=== PATIENT | male | born 1930 | race Caucasian/White ===

== ENCOUNTER 2017-08-17 09:18 | Emergency (ER) | payer MEDICARE, BC ==
[2017-08-17 09:47] VITALS: BP 126/65
--- NOTE | 2017-08-17 11:35 | UC ---
General HPI - HPI Summary HPI Summary: 86 year old male with groin pain. He went to bend over yesterday after getting out of his car in an awkward position and felt a burning sensation that radiated in to the inside of his thigh. no bowel or bladder concerns. no obvious bulge in the groin. no weakness in the foot or leg or any foot drop . feels the discomfort in the left. pain 4/10 today was 7/10 last night - History of Current Complaint Chief Complaint: UCLowerExtremity Stated Complaint: GROIN PAIN Time Seen by Provider: 08/17/17 10:27 Onset/Duration: Sudden Onset Pain Intensity: 0 - Allergy/Home Medications Allergies/Adverse Reactions: Allergies Allergy/AdvReac Type Severity Reaction Status Date / Time No Known Allergies Allergy Verified 08/17/17 09:29 Home Medications: Home Medications Acetaminophen TAB* [Tylenol TAB*] 650 mg PO Q4H PRN 08/17/17 [History Confirmed 08/17/17] PMH/Surg Hx/FS Hx/Imm Hx Previously Healthy: Yes - Surgical History Surgical History: Yes Surgery Procedure, Year, and Place: 1934 SYMPATHECTOMY ([facility]), [place]. 1950 APPENDECTOMY, [employer]. [id number] [facility]AL [facility] [place]. LEFT CTR 08/24 [facility] - Social History Alcohol Use: Rare Substance Use Type: None Smoking Status (MU): Former Smoker Type: Cigarettes Amount Used/How Often: 1 PPD OR LESS Length of Time of Smoking/Using Tobacco: 40 YEARS Have You Smoked in the Last Year: No When Did the Patient Quit Smoking/Using Tobacco: AGE 64 - Immunization History Most Recent Influenza Vaccination: 2014 Most Recent Tetanus Shot: unknown Most Recent Pneumonia Vaccination: 2012 Review of Systems Musculoskeletal: Other: - left groin pain Is Patient Immunocompromised?: No All Other Systems Reviewed And Are Negative: Yes Physical Exam Triage Information Reviewed: Yes Appearance: Well-Appearing, No Pain Distress, Well-Nourished Vital Signs: Initial Vital Signs Temp 98.1 F 08/17/17 09:33 Pulse 86 08/17/17 09:33 Resp 18 08/17/17 09:33 BP 126/65 08/17/17 09:33 Pulse Ox 97 08/17/17 09:33 Vital Signs Reviewed: Yes Eye Exam: Normal ENT Exam: Normal Respiratory Exam: Normal Cardiovascular Exam: Normal Abdominal Exam: Normal Abdomen Description: Positive: Nontender, No Organomegaly, Soft, Other: - left inner groin tenderness to palpation in the area of the gracilis. no obvious hernia or bulge. pain and tenderness went from groin in to the left thigh medially about 6 cm. no skin changes no ecchymosis. no scrotal concerns or abscess. Negative: CVA Tenderness (R), CVA Tenderness (L), Distended, Guarding , Hernia @ Neurological Exam: Normal Psychological Exam: Normal Skin Exam: Normal Course/Dx - Course Course Of Treatment: likely groin strain from bending over and putting pressure on the gracilis. no hernia noted on exam . discussed plans and will try APAP with ice and flexeril if discofort at night, if bulge develops or pain persists then go to general surgery . pt agreeable to plan - Differential Dx - Multi-Symptom Provider Diagnoses: Left sided groin pain / strain / sports hernia Discharge - Discharge Plan Condition: Good Disposition: HOME Prescriptions: Cyclobenzaprine (NF) [Cyclobenzaprine 5 MG (NF)] 5 mg PO TID #5 tab Patient Education Materials: Groin Pain (ED) Referrals: Nigel Euceda MD [Primary Care Provider] - 3 Days Cruz Chu MD [Medical Doctor] - If Needed (GENERAL SURGERY REFERRAL IF PAIN PERSISTS OR WORSENS OR DEVELOP HERNIA )
== END 2017-08-17 11:12 | disposition home or self-care (01) ==
LOC: UCCORT 09:18
DX: R10.30 Lower abdominal pain, unspecified (principal); K46.9 Unspecified abdominal hernia without obstruction or gangrene; T14.8XXA Other injury of unspecified body region, initial encounter; X50.9XXA Other and unspecified overexertion or strenuous movements or postures, initial encounter; Y92.9 Unspecified place or not applicable; Z87.891 Personal history of nicotine dependence
CPT/HCPCS: 99212; G0463

== ENCOUNTER 2017-09-01 15:26 | Emergency (ER) | payer MEDICARE, BC ==
[2017-09-01 16:04] VITALS: BP 143/74
--- NOTE | 2017-09-01 16:49 | UC ---
UC General HPI - HPI Summary HPI Summary: Patient has recent left groin strain, now has right knee pain and right lebow bursititis, he is not sure how it happened, states he leans on the arm alot. - History of Current Complaint Chief Complaint: UCUpperExtremity Stated Complaint: RIGHT ELBOW,RIGHT KNEE,BACK PAIN Time Seen by Provider: 09/01/17 16:24 Hx Obtained From: Patient Onset/Duration: Sudden Onset, Lasting Days Timing: Constant Onset Severity: Moderate Current Severity: Moderate - Allergy/Home Medications Allergies/Adverse Reactions: Allergies Allergy/AdvReac Type Severity Reaction Status Date / Time No Known Allergies Allergy Verified 09/01/17 16:04 PMH/Surg Hx/FS Hx/Imm Hx Previously Healthy: Yes - Surgical History Surgical History: Yes Surgery Procedure, Year, and Place: 1934 SYMPATHECTOMY ([facility]), [place]. 1950 APPENDECTOMY, [employer]. [phone] [facility]AL [facility]. LEFT CTR 08/24 [facility] - Family History Known Family History: Positive: Hypertension - Social History Alcohol Use: Rare Substance Use Type: None Smoking Status (MU): Never Smoked Tobacco Type: Cigarettes Amount Used/How Often: 1 PPD OR LESS Length of Time of Smoking/Using Tobacco: 40 YEARS Have You Smoked in the Last Year: No When Did the Patient Quit Smoking/Using Tobacco: 1994 - Immunization History Most Recent Influenza Vaccination: 2014 Most Recent Tetanus Shot: unknown Most Recent Pneumonia Vaccination: 2012 Review of Systems Skin: Negative Eyes: Negative ENT: Negative Respiratory: Negative Cardiovascular: Negative Gastrointestinal: Negative Genitourinary: Negative Motor: Negative Neurovascular: Negative Musculoskeletal: Arthralgia, Edema - in right elbow, Myalgia Neurological: Negative Psychological: Negative Is Patient Immunocompromised?: No All Other Systems Reviewed And Are Negative: Yes Physical Exam Triage Information Reviewed: Yes Appearance: Well-Appearing, Well-Nourished, Pain Distress Vital Signs: Initial Vital Signs Temp 99.2 F 09/01/17 15:52 Pulse 70 09/01/17 15:52 Resp 17 09/01/17 15:52 BP 143/74 09/01/17 15:52 Pulse Ox 97 09/01/17 15:52 Eye Exam: Normal Eyes: Positive: Conjunctiva Clear ENT Exam: Normal ENT: Positive: Pharynx normal, TMs normal Dental Exam: Normal Neck exam: Normal Respiratory Exam: Normal Respiratory: Positive: Chest non-tender, Lungs clear, Normal breath sounds Cardiovascular Exam: Normal Cardiovascular: Positive: RRR, No Murmur, Pulses Normal Abdominal Exam: Normal Abdomen Description: Positive: Nontender, No Organomegaly, Soft Musculoskeletal: Positive: Strength Intact, ROM Limited @ - in lumbar spine ext , Edema @ - in right elbow, Other: - knee ROM full, pain along the medial joint line Neurological Exam: Normal Psychological Exam: Normal Skin Exam: Normal Course/Dx - Course Course Of Treatment: hx obtained, exam performed ,meds reviewed, treated for bursitis, - Differential Dx - Multi-Symptom Provider Diagnoses: right suprapatellar joint effusion. OA. RIght elbow bursitis. healing left groain strain Discharge - Discharge Plan Condition: Stable Disposition: HOME Patient Education Materials: Elbow Bursitis (ED), Swollen Knee Joint (ED) Additional Instructions: 1. COntinue with the slava wrap for swelling 2. You can take 1000 mg of tylenol every 8 hours for pain. 3. rest, ice the knee, Elevate at rest 4. I would like you to follow with Dr Ramírez tomorrow for the swelling in your knee.
--- NOTE | 2017-09-01 17:10 | RAD ---
Indication: Lateral RIGHT knee pain for 3 days. Comparison: None. Technique: RIGHT knee: AP, tunnel, lateral, sunrise views. Report: Mild osteophytosis. Moderately severe medial joint space narrowing with associated partial flattening of the articular surfaces and subchondral sclerosis. Similar joint space narrowing at the patellofemoral joint. Small suprapatellar joint effusion. Negative for fracture or malalignment. Peripheral vascular calcifications. Unremarkable soft tissue contours. IMPRESSION: Kellgren and Chinedu grade 3 osteoarthritis. Associated small joint effusion. No fracture evident.
== END 2017-09-01 17:34 | disposition home or self-care (01) ==
LOC: UCCORT 15:26
DX: M25.461 Effusion, right knee (principal); Z87.891 Personal history of nicotine dependence; M19.90 Unspecified osteoarthritis, unspecified site; M70.31 Other bursitis of elbow, right elbow; S39.011A Strain of muscle, fascia and tendon of abdomen, initial encounter; X58.XXXA Exposure to other specified factors, initial encounter; Y92.9 Unspecified place or not applicable
CPT/HCPCS: 99212; G0463

== ENCOUNTER 2017-09-23 16:01 | Emergency (ER) | payer MEDICARE, BC ==
[2017-09-23 17:09] VITALS: BP 148/71
--- NOTE | 2017-09-23 17:38 | UC ---
Respiratory Complaint HPI - HPI Summary HPI Summary: 86 YEAR OLD MALE PRESENTS WITH COMPLAINS OF COUGHING AND SHORTNESS OF BREATH. - History of Current Complaint Chief Complaint: UCGeneralIllness Stated Complaint: RESPIRATORY Time Seen by Provider: 09/23/17 17:36 Hx Obtained From: Patient Onset/Duration: Sudden Onset Severity Initially: Moderate Severity Currently: Moderate Pain Scale Used: 0-10 Numeric - 5 - Allergies/Home Medications Allergies/Adverse Reactions: Allergies Allergy/AdvReac Type Severity Reaction Status Date / Time No Known Allergies Allergy Verified 09/23/17 17:09 Home Medications: Home Medications Cyclobenzaprine (NF) [Cyclobenzaprine 5 MG (NF)] 5 mg PO TID PRN 09/23/17 [ History Confirmed 09/23/17] [id number] [Nyquil Severe Cold/Flu 5-6.25-10-325 mg/15Ml] 30 ml PO BEDTIME PRN 09/23/17 [History Confirmed 09/23/17] PMH/Surg Hx/FS Hx/Imm Hx Previously Healthy: Yes - Surgical History Surgical History: Yes Surgery Procedure, Year, and Place: 1934 SYMPATHECTOMY ([facility]), [place]. 1950 APPENDECTOMY, [employer]. [phone] B[facility]AL [facility] [place]. LEFT CTR 08/24 [facility] - Family History Known Family History: Positive: Hypertension - Social History Alcohol Use: Rare Substance Use Type: None Smoking Status (MU): Former Smoker Type: Cigarettes Amount Used/How Often: 1 PPD OR LESS Length of Time of Smoking/Using Tobacco: 40 YEARS Have You Smoked in the Last Year: No When Did the Patient Quit Smoking/Using Tobacco: 1994 - Immunization History Most Recent Influenza Vaccination: 2014 Most Recent Tetanus Shot: unknown Most Recent Pneumonia Vaccination: 2012 Review of Systems Constitutional: Negative Skin: Negative Eyes: Negative ENT: Sore Throat, Nasal Discharge, Sinus Congestion, Sinus Pain/Tenderness Respiratory: Cough Cardiovascular: Negative Gastrointestinal: Negative Genitourinary: Negative Motor: Negative Neurovascular: Negative Musculoskeletal: Negative Neurological: Negative Psychological: Negative All Other Systems Reviewed And Are Negative: Yes Physical Exam Triage Information Reviewed: Yes Vital Signs: Initial Vital Signs Temp 36.8 C 09/23/17 17:02 Pulse 74 09/23/17 17:02 Resp 20 09/23/17 17:02 BP 148/71 09/23/17 17:02 Pulse Ox 98 09/23/17 17:02 Vital Signs Reviewed: Yes Eye Exam: Normal ENT Exam: Normal ENT: Positive: Nasal congestion, Nasal drainage Dental Exam: Normal Neck exam: Normal Neck: Positive: 1 Respiratory Exam: Normal Respiratory: Positive: Wheezing Cardiovascular Exam: Normal Abdominal Exam: Normal Musculoskeletal Exam: Normal Neurological Exam: Normal Psychological Exam: Normal Skin Exam: Normal UC Diagnostic Evaluation - Laboratory O2 Sat by Pulse Oximetry: 98 Respiratory Course/Dx - Differential Dx/Diagnosis Provider Diagnoses: BRONCHITIS. SINUSITIS Discharge - Discharge Plan Condition: Stable Disposition: HOME Prescriptions: Azithromyxin GUNNER (NF) [Z-Gunner (Zithromax) 250 mg tabs #6] 2 tab PO .TODAY, THEN 1 DAILY #6 tab Patient Education Materials: Sinusitis (ED) Referrals: Nigel Euceda MD [Primary Care Provider] -
== END 2017-09-23 17:55 | disposition home or self-care (01) ==
LOC: UCCORT 16:01
DX: J40 Bronchitis, not specified as acute or chronic (principal); J32.9 Chronic sinusitis, unspecified; Z90.89 Acquired absence of other organs; Z87.891 Personal history of nicotine dependence
CPT/HCPCS: 99212; G0463

== ENCOUNTER 2018-03-16 10:22 | Emergency (ER) | payer MEDICARE, BC ==
[2018-03-16 11:30] VITALS: BP 139/67
--- NOTE | 2018-03-16 12:38 | UC ---
Respiratory Complaint HPI - HPI Summary HPI Summary: C/O 2 day h/o congestion, sore throat, sinus pain. Minimal cough with no SOB/ or wheezing. - History of Current Complaint Chief Complaint: UCRespiratory Stated Complaint: RESPIRATORY/ST Time Seen by Provider: 03/16/18 12:30 Hx Obtained From: Patient Onset/Duration: Sudden Onset, Lasting Days - 2, Worse Since - onset Timing: Constant Severity Initially: Mild Severity Currently: Moderate Pain Intensity: 0 Character: Cough: Nonproductive Aggravating Factors: Nothing Alleviating Factors: Nothing Associated Signs And Symptoms: Positive: URI, Nasal Congestion, Hoarseness, Sinus Discomfort. Negative: Dyspnea, Fever, Chills, Wheezing - Allergies/Home Medications Allergies/Adverse Reactions: Allergies Allergy/AdvReac Type Severity Reaction Status Date / Time No Known Allergies Allergy Verified 03/16/18 11:31 Home Medications: Home Medications Calcium Carbonate [Calcium] 500 mg PO BID 03/16/18 [History Confirmed 03/16/18] Hydrochlorothiazide TAB* [Hydrodiuril TAB*] 25 mg PO DAILY 03/16/18 [History Confirmed 03/16/18] Testosterone Injection 1 dose INJ SEE INSTRUCTIONS 03/16/18 [History Confirmed 03/16/18] PMH/Surg Hx/FS Hx/Imm Hx Cardiovascular History: Hypertension - Surgical History Surgical History: Yes Surgery Procedure, Year, and Place: 1934 SYMPATHECTOMY ([facility]), [place]. 1950 APPENDECTOMY, [employer]. [phone] [facility]. LEFT CTR 08/24 [facility] - Family History Known Family History: Positive: Hypertension, Diabetes - Social History Occupation: Retired Lives: With Family Alcohol Use: Rare Substance Use Type: None Smoking Status (MU): Former Smoker Type: Cigarettes Amount Used/How Often: 1 PPD OR LESS Length of Time of Smoking/Using Tobacco: 40 YEARS Have You Smoked in the Last Year: No When Did the Patient Quit Smoking/Using Tobacco: 1994 - Immunization History Most Recent Influenza Vaccination: 2014 Most Recent Tetanus Shot: unknown Most Recent Pneumonia Vaccination: 2012 Review of Systems ENT: Sore Throat, Sinus Pain/Tenderness Respiratory: Cough Is Patient Immunocompromised?: No All Other Systems Reviewed And Are Negative: Yes Physical Exam Triage Information Reviewed: Yes Appearance: No Pain Distress, Well-Nourished, Ill-Appearing Vital Signs: Initial Vital Signs Temp 99.4 F 03/16/18 11:20 Pulse 74 03/16/18 11:20 Resp 20 03/16/18 11:20 BP 139/67 03/16/18 11:20 Pulse Ox 97 03/16/18 11:20 Vital Signs Reviewed: Yes Eyes: Positive: Conjunctiva Clear ENT: Positive: Pharynx normal, Nasal congestion, TMs normal Neck exam: Normal Respiratory Exam: Normal Cardiovascular Exam: Normal Cardiovascular: Positive: Murmur:Sys:Grade _?_/ - 2/6 murmur Musculoskeletal Exam: Normal Neurological Exam: Normal Psychological Exam: Normal Skin Exam: Normal UC Diagnostic Evaluation - Laboratory O2 Sat by Pulse Oximetry: 97 Respiratory Course/Dx - Differential Dx/Diagnosis Differential Diagnosis/HQI/PQRI: Asthma, Lower Resp Infection, Sinusitis Provider Diagnoses: Acute URI. Acute Sinusitis Discharge - Sign-Out/Discharge Documenting (check all that apply): Discharge/Admit/Transfer - Discharge Plan Condition: Stable Disposition: HOME Prescriptions: Amoxicillin PO (*) [Amoxicillin 875 MG (*)] 875 mg PO BID #20 tab Patient Education Materials: Upper Respiratory Infection (ED), Sinusitis (ED), Amoxicillin (By mouth) Referrals: Nigel Euceda MD [Primary Care Provider] - - Billing Disposition and Condition Condition: STABLE Disposition: HOME
== END 2018-03-16 12:53 | disposition home or self-care (01) ==
LOC: UCCORT 10:22
DX: J06.9 Acute upper respiratory infection, unspecified (principal); J01.90 Acute sinusitis, unspecified; I10 Essential (primary) hypertension; Z87.891 Personal history of nicotine dependence
CPT/HCPCS: 99212; G0463

== ENCOUNTER 2018-05-29 08:46 | Emergency (ER) | payer MEDICARE, BC ==
[2018-05-29 09:12] VITALS: BP 153/79
--- NOTE | 2018-05-29 09:50 | UC ---
Throat Pain/Nasal Alexander HPI - HPI Summary HPI Summary: 87 yo male presents with two complaints: 1) Yesterday and this morning he noticed bright red blood on the toilet tissue after having a BM. Has some perianal pain and noticed a tender large bump around his anus. Says he thinks it is a hemorrhoid. Has not tried anything OTC. No black tarry or dark stools. Denies abdominal pain, n/v/d/c. 2) Sinus pain/pressure/congestion, sneezing, and dry cough for the last 5 days. Has not taken anything OTC. Denies fever, chills, SOB, chest pain. - History of Current Complaint Chief Complaint: UCGeneralIllness Stated Complaint: PERSONAL/COLD Time Seen by Provider: 05/29/18 09:49 Hx Obtained From: Patient Pain Intensity: 0 Cough: Nonproductive - Allergies/Home Medications Allergies/Adverse Reactions: Allergies Allergy/AdvReac Type Severity Reaction Status Date / Time No Known Allergies Allergy Verified 05/29/18 08:59 PMH/Surg Hx/FS Hx/Imm Hx Endocrine History: Dyslipidemia Cardiovascular History: Hypertension - Surgical History Surgical History: Yes Surgery Procedure, Year, and Place: 1934 SYMPATHECTOMY ([facility]), [place]. 1950 APPENDECTOMY, [employer]. [phone] [facility]AL [facility]. LEFT CTR 08/24 [facility] - Family History Known Family History: Positive: Hypertension, Diabetes - Social History Occupation: Retired Lives: With Family Alcohol Use: Rare Substance Use Type: None Smoking Status (MU): Former Smoker Type: Cigarettes Amount Used/How Often: 1 PPD OR LESS Length of Time of Smoking/Using Tobacco: 40 YEARS Have You Smoked in the Last Year: No When Did the Patient Quit Smoking/Using Tobacco: 1994 - Immunization History Most Recent Influenza Vaccination: 2014 Most Recent Tetanus Shot: unknown Most Recent Pneumonia Vaccination: 2013 Review of Systems Constitutional: Negative Skin: Negative Eyes: Negative ENT: Nasal Discharge, Sinus Congestion, Sinus Pain/Tenderness Respiratory: Cough Cardiovascular: Negative Gastrointestinal: Other - Bright red blood anus Neurovascular: Negative Neurological: Negative Psychological: Negative All Other Systems Reviewed And Are Negative: Yes Physical Exam - Summary Physical Exam Summary: GENERAL: NAD. WDWN. No pain distress. SKIN: No rashes, sores, lesions, or open wounds. HEENT: Head: AT/NC Eyes: EOM intact. Conjunctiva clear without inflammation or discharge. Ears: Hearing grossly normal. TMs intact, no bulging, erythema, or edema. Nose: Nasal mucosa mildly swollen and erythematous with yellow/ clear discharge. TTP maxillary and frontal sinus. Throat: Posterior oropharynx without exudates, erythema, or tonsillar enlargement. Uvula midline. NECK: Supple. Nontender. No lymphadenopathy. CHEST: CTAB. No r/r/w. No accessory muscle use. Breathing comfortably and in no distress. CV: RRR. Without m/r/g. Pulses intact. Brisk cap refill. : Rectal exam with obvious bright red blood from moderate sized external hemorrhoid at 8 o'clock. TTP. No fissures. EDYTA without appreciable hemorrhoid. NEURO: Alert. CN II-XII grossly intact. PSYCH: Age appropriate behavior. Triage Information Reviewed: Yes Vital Signs: Initial Vital Signs Temp 99.2 F 05/29/18 09:02 Pulse 72 05/29/18 09:02 Resp 20 05/29/18 09:02 BP 153/79 05/29/18 09:02 Pulse Ox 98 05/29/18 09:02 Vital Signs Reviewed: Yes Throat Pain/Nasal Course/Dx - Course Course Of Treatment: Sinusitis. Hemorrhoid - Differential Dx/Diagnosis Provider Diagnoses: Sinusitis. Hemorrhoid Discharge - Sign-Out/Discharge Documenting (check all that apply): Patient Departure - Discharge Plan Condition: Stable Disposition: HOME Prescriptions: Amoxicillin PO (*) [Amoxicillin 500 MG CAP*] 500 mg PO Q12H #14 cap Hydrocortisone SUPP* [Anusol HC Supp*] 25 mg NC BID #14 supp Patient Education Materials: Hemorrhoids (DC), Sinusitis (ED) Referrals: Nigel Euceda MD [Primary Care Provider] - Star Call MD [Medical Doctor] - If Needed Additional Instructions: If you develop a fever, shortness of breath, chest pain, new or worsening symptoms - please call your PCP or go to the ED. Your blood pressure was high at todays visit. Please see your primary provider within 4 weeks for recheck and re-evaluation. - Billing Disposition and Condition Condition: STABLE Disposition: Home
== END 2018-05-29 10:11 | disposition home or self-care (01) ==
LOC: UCCORT 08:46
DX: K64.4 Residual hemorrhoidal skin tags (principal); J32.9 Chronic sinusitis, unspecified; I10 Essential (primary) hypertension; Z87.891 Personal history of nicotine dependence
CPT/HCPCS: 99212; G0463

== ENCOUNTER 2018-12-26 08:28 | Emergency (ER) | payer MEDICARE, BC ==
[2018-12-26 08:46] VITALS: BP 170/78
--- NOTE | 2018-12-26 09:06 | UC ---
Respiratory Complaint HPI - HPI Summary HPI Summary: cough x 3 days cough is productive with yellow sputum nasal congestion , pnd no fever, no chills - History of Current Complaint Chief Complaint: UCRespiratory Stated Complaint: HEAD/CHEST CONGESTION,COUGH Time Seen by Provider: 12/26/18 09:00 Hx Obtained From: Patient Onset/Duration: Gradual Onset, Lasting Days - 3, Still Present Timing: Constant Severity Initially: Moderate Severity Currently: Moderate Pain Intensity: 0 Character: Cough: Productive - yellow Aggravating Factors: Exertion, Deep Breaths Alleviating Factors: Nothing Associated Signs And Symptoms: Positive: URI, Nasal Congestion. Negative: Dyspnea, Fever, Chills, Wheezing, Dizziness - Allergies/Home Medications Allergies/Adverse Reactions: Allergies Allergy/AdvReac Type Severity Reaction Status Date / Time No Known Allergies Allergy Verified 12/26/18 08:44 PMH/Surg Hx/FS Hx/Imm Hx - Additional Past Medical History Additional PMH: Dyslipidemia, GERD, Fluid Retention Cardiovascular History: Hypertension - Surgical History Surgical History: Yes Surgery Procedure, Year, and Place: 1934 SYMPATHECTOMY ([facility]), [place]. [id number]. LEFT CTR 08/24 [facility] - Family History Known Family History: Positive: Hypertension, Diabetes - Social History Alcohol Use: None Substance Use Type: None Smoking Status (MU): Former Smoker Type: Cigarettes Amount Used/How Often: 1 PPD OR LESS Length of Time of Smoking/Using Tobacco: 40 YEARS Have You Smoked in the Last Year: No When Did the Patient Quit Smoking/Using Tobacco: 1994 - Immunization History Most Recent Influenza Vaccination: 2014 Most Recent Tetanus Shot: unknown Most Recent Pneumonia Vaccination: 2012 Review of Systems All Other Systems Reviewed And Are Negative: Yes Constitutional: Positive: Negative Skin: Positive: Negative Eyes: Positive: Negative ENT: Positive: Nasal Discharge Respiratory: Positive: Cough Cardiovascular: Positive: Negative Is Patient Immunocompromised?: No Physical Exam Triage Information Reviewed: Yes Appearance: Well-Appearing, No Pain Distress, Well-Nourished Vital Signs: Initial Vital Signs Temp 98.3 F 12/26/18 08:42 Pulse 75 12/26/18 08:42 Resp 20 12/26/18 08:42 BP 170/78 12/26/18 08:42 Pulse Ox 98 12/26/18 08:42 Vital Signs Reviewed: Yes Eye Exam: Normal Eyes: Positive: Conjunctiva Clear ENT: Positive: Normal ENT inspection, Hearing grossly normal, Nasal congestion, Nasal drainage Dental Exam: Normal Neck exam: Normal Neck: Positive: Supple, Nontender, No Lymphadenopathy Respiratory: Positive: Chest non-tender, Lungs clear, Normal breath sounds Cardiovascular: Positive: RRR, No Murmur, Pulses Normal Skin Exam: Normal UC Diagnostic Evaluation - Laboratory O2 Sat by Pulse Oximetry: 98 Respiratory Course/Dx - Differential Dx/Diagnosis Provider Diagnosis: URI (upper respiratory infection) Discharge - Sign-Out/Discharge Documenting (check all that apply): Patient Departure All imaging exams completed and their final reports reviewed: No Studies - Discharge Plan Condition: Stable Disposition: HOME Patient Education Materials: Upper Respiratory Infection (DC) Referrals: Nigel Euceda MD [Primary Care Provider] - If Needed - Billing Disposition and Condition Condition: STABLE Disposition: Home
== END 2018-12-26 09:12 | disposition home or self-care (01) ==
LOC: UCCORT 08:28
DX: J06.9 Acute upper respiratory infection, unspecified (principal); Z87.891 Personal history of nicotine dependence
CPT/HCPCS: 99211; G0463